=== PATIENT | female | born 1955 | race Caucasian/White ===

== ENCOUNTER 2017-09-09 11:53 | Outpatient (CLI) | payer BC | END 2017-09-09 11:54 | disposition home or self-care (01) | LOC: CTENTCT 11:53 | PROVIDERS: ATTEND Otolaryngology Plastic Surgery within the Head & Neck | DX: J32.9 Chronic sinusitis, unspecified (principal) | CPT/HCPCS: 70486 ==

== ENCOUNTER 2017-09-11 08:23 | Day surgery (SDC) | payer BC ==
[2017-09-10 14:24] VITALS: BMI 30.7
[2017-09-11] MEDS ORDERED: Oxymetazoline HCl 0.05% ( 15 ML ) ONE ×2 (08:59→09:52)
[2017-09-11] MEDS ORDERED: Lidocaine 1% w/Epinephrine 1:200K 30 ML VIAL ONE (09:52)
[2017-09-11] MEDS ORDERED: Bacitracin Zinc Ointment 30 gm TUBE ONE (09:52)
[2017-09-11] MEDS ORDERED: Fentanyl 100 MCG/2 ML VIAL ONE ×2 (10:30→11:51)
[2017-09-11] MEDS ORDERED: Ondansetron HCl/PF 4 MG/2 ML Vial ONE (10:36)
[2017-09-11] MEDS ORDERED: Dexamethasone 20 MG/5 ML VIAL ONE (10:36)
[2017-09-11] MEDS ORDERED: Propofol 200 MG/20 ML VIAL ONE (10:36)
[2017-09-11] MEDS ORDERED: Lidocaine 2% PF 10 ML AMP (For Epidural Use) ONE (10:36)
[2017-09-11] MEDS ORDERED: methylPREDNISolone Sod Succ/PF 125 MG/2 ML VIAL ONE (10:46)
[2017-09-11] MEDS ORDERED: methylPREDNISolone Acetate 40 mg/ml Vial ONE (10:47)
[2017-09-11] MEDS ORDERED: Promethazine HCl 25 MG/ML VIAL ONE (11:28)
[2017-09-11] MEDS ORDERED: Hydrocodone-Acetamin 15 ML UDCUP ONE (12:39)
--- NOTE | 2017-09-11 14:48 | EKG ---
Test Reason : PREOP Blood Pressure : / mmHG Vent. Rate : 079 BPM Atrial Rate : 079 BPM P-R Int : 162 ms QRS Dur : 076 ms QT Int : 382 ms P-R-T Axes : 073 067 070 degrees QTc Int : 438 ms Normal sinus rhythm Normal ECG No previous ECGs available Confirmed by OZIEL GAYTAN ([id number]) on 09/11/2017 2:48:18 PM Referred By: CLARY Confirmed By:OZIEL GAYTAN
--- NOTE | 2017-09-12 09:21 | OP ---
PREOPERATIVE DIAGNOSES: 1. Chronic rhinosinusitis. 2. Nasal septal deviation. 3. Bilateral inferior turbinate hypertrophy. 4. Nasal obstruction. POSTOPERATIVE DIAGNOSES: 1. Chronic rhinosinusitis. 2. Nasal septal deviation. 3. Bilateral inferior turbinate hypertrophy. 4. Nasal obstruction. PROCEDURES: 1. Bilateral endoscopic sinus surgery, total ethmoidectomies. 2. Bilateral endoscopic sinus surgery, maxillary antrostomies. 3. Bilateral endoscopic sinus surgery, frontal sinusotomy. 4. Nasal septoplasty. 5. Bilateral inferior turbinate submucosal resection. SURGEON: Washington Yates M.D. ESTIMATED BLOOD LOSS: Less than 20 mL. COMPLICATIONS: None. ANESTHESIA: GETA. PROCEDURE IN DETAIL: Patient was taken to the operating room and placed supine on the table. Gener al endotracheal anesthesia was obtained by the Anesthesia staff. Tube was secured in the left lower lip. Patient was then placed in the beach chair position, and Afrin pledgets were placed in the na sejal cavity. Injections of 1% lidocaine with 1:100,000 epinephrine were made into the nasal septum a s well as the inferior turbinates. Patient was then prepped and draped in standard surgical fashion for nasal surgery. Following this, the Afrin pledgets were removed. A Pawel incision was made o n the left nasal septum. Submucoperichondrial dissection was performed. The deviated portions of t he septum included portions of the cartilage and the bony septum. These isolated areas were removed using three cutting rongeurs. There was noted to be a large dorsal and caudal strut, left intact f or support of the nose. The mucoperichondrial flaps were then reapproximated using a 4-0 gut stitch. Any straight pieces of car tilage were crushed prior to this and placed between the mucoperichondrial flaps. Following this, t he inferior turbinates were then punctured with a submucosal coblation wand, and submucosal coblatio ns were performed of multiple areas of the inferior portion of the anterior inferior turbinate. Please note that the submucosal microdebrider was used to submucosally resect the anterior and infer ior portions of the inferior turbinates bilaterally. Following this, the 0 degree scope was advance d in the middle meatus. The middle turbinates were gently medialized with a [place] elevator. A 1% l idocaine with 1:100,000 epinephrine was injected into the lateral nasal wall. The uncinate process was then identified and was anteriorly fractured using the ball-ended probe. Following this, the un cinate was removed using upbiting [place]akes[place] forceps and the straight microdebrider. Following this, the natural maxillary sinus ostia was identified with a ball-ended probe was gently widened using s traight [place] and microdebrider. Following this, the ethmoidal bulla was identified bilaterally and was punctured on its medial and inferior aspect and was removed using the microdebrider and upb iting Blakesley forceps. Following this, the grand lamella was identified and was punctured into th e posterior ethmoidal cells. Working from posterior to anterior, the ethmoidal cells were opened in a mucosal-sparing technique. Following this, the nasal cavity was irrigated. Following this, a 45 degree scope and the upbiting microdebrider were then used to visualize the frontal recess and fron marge sinus ostia area, which was then gently widened using the curved microdebrider and upbiting Willis kathleen forceps, widening the frontal sinus ostia bilaterally. Following this, the nasal cavity was ir rigated. MeroPacks were placed within the middle meatus. Martinez splints were placed and secured. T he patient tolerated the procedure well.
== END 2017-09-11 13:00 | disposition home or self-care (01) ==
LOC: SDC 08:23
PROVIDERS: ATTEND Otolaryngology Plastic Surgery within the Head & Neck
PROC: 09RM07Z Replacement of Nasal Septum with Autologous Tissue Substitute, Open Approach (ICD-10-PCS; principal; 2017-09-11)
PROC: 09BS8ZZ Excision of Right Frontal Sinus, Via Natural or Artificial Opening Endoscopic (ICD-10-PCS; principal; 2017-09-11)
PROC: 099R8ZZ Drainage of Left Maxillary Sinus, Via Natural or Artificial Opening Endoscopic (ICD-10-PCS; principal; 2017-09-11)
PROC: 09BT8ZZ Excision of Left Frontal Sinus, Via Natural or Artificial Opening Endoscopic (ICD-10-PCS; principal; 2017-09-11)
PROC: 09TL7ZZ Resection of Nasal Turbinate, Via Natural or Artificial Opening (ICD-10-PCS; principal; 2017-09-11)
PROC: 099Q8ZZ Drainage of Right Maxillary Sinus, Via Natural or Artificial Opening Endoscopic (ICD-10-PCS; principal; 2017-09-11)
PROC: 09TU8ZZ Resection of Right Ethmoid Sinus, Via Natural or Artificial Opening Endoscopic (ICD-10-PCS; principal; 2017-09-11)
PROC: 09TV8ZZ Resection of Left Ethmoid Sinus, Via Natural or Artificial Opening Endoscopic (ICD-10-PCS; principal; 2017-09-11)
DX: J32.0 Chronic maxillary sinusitis (principal); J32.2 Chronic ethmoidal sinusitis; J32.1 Chronic frontal sinusitis; J34.2 Deviated nasal septum; J34.3 Hypertrophy of nasal turbinates; I10 Essential (primary) hypertension; Q24.8 Other specified congenital malformations of heart; E03.9 Hypothyroidism, unspecified; E78.00 Pure hypercholesterolemia, unspecified; D64.9 Anemia, unspecified; J45.909 Unspecified asthma, uncomplicated; Z79.2 Long term (current) use of antibiotics; Z79.890 Hormone replacement therapy; Z79.51 Long term (current) use of inhaled steroids; Z79.899 Other long term (current) drug therapy; Z90.710 Acquired absence of both cervix and uterus; Z90.49 Acquired absence of other specified parts of digestive tract; Z98.890 Other specified postprocedural states
CPT/HCPCS: 36415; 85014; 93005; 93010; 96374; J1030; J1100; J2001; J2405; J2550; J2704; J2930; J3010